=== PATIENT | female | born 1955 | race Native Hawaiian/Other Pacific Islander ===

== ENCOUNTER 2021-04-12 06:56 | Inpatient (IN) | payer MEDICARE, OTHER ==
[~2021-04-12] VITALS: Ht 152.4 cm; Wt 66.0 kg
[2021-04-12] MEDS ORDERED: MAG-OX 400 TAB400 MG PO (07:59)
[2021-04-12] MEDS ORDERED: PROVENTIL HFA6.7 GM INH (08:00)
[2021-04-12] MEDS ORDERED: AMARYL 2MG TABLE2 MG PO (08:01)
[2021-04-12] MEDS ORDERED: ATORVASTATIN CA10 MG PO (08:02)
[2021-04-12] MEDS ORDERED: BYDUREON BCISE 2 MG (08:02)
[2021-04-12] MEDS ORDERED: COLCHICINE0.6 MG PO (08:03)
[2021-04-12] MEDS ORDERED: COREG 25MG TAB25 MG PO (08:04)
[2021-04-12] MEDS ORDERED: DIGOXIN125 MCG PO (08:05)
[2021-04-12] MEDS ORDERED: ENTRESTO 49 MG1 EACH PO (08:05)
[2021-04-12] MEDS ORDERED: FUROSEMIDE20 MG PO (08:06)
[2021-04-12] MEDS ORDERED: MONTELUKAST SOD10 MG PO (08:07)
[2021-04-12] MEDS ORDERED: LORATADINE10 MG PO (08:07)
[2021-04-12] MEDS ORDERED: ALIROCUMAB 75 MG/ML (08:08)
[2021-04-12] MEDS ORDERED: POTASSIUM CHLO10 MEQ PO (08:08)
[2021-04-12] MEDS ORDERED: ZYLOPRIM 300 M300 MG PO (08:09)
[2021-04-12] MEDS ORDERED: ZADITOR5 ML OP (08:11)
[2021-04-12] MEDS ORDERED: PREDNISONE 10 M10 MG PO (08:11)
[2021-04-12 11:01] LABS: HEMOGLOBIN 17.8 gm/dl (12.3-15.3); RED BLOOD COUNT 5.92 M/UL (4.00-5.10); WHITE BLOOD COUNT 11.6 K/UL (4.5-11.0)
[2021-04-12] MEDS ORDERED: KENALOG CREAM 015 GM TOP (14:49)
--- NOTE | 2021-04-13 00:06 | NUR ---
PATIENT BLOOD PRESSURE DECREASED WITH SBP BEING IN 60'S, SHIFTED PATIENT TO LEFT TILT AND BLOOD PRESSURE BECAME NORMAL, LEVOPHED TITRATED TO 16 OVER 20 LEAVING A BP OF 101/52 MAP OF 65
--- NOTE | 2021-04-13 03:58 | NUR ---
urine sample collected and sent to lab
[2021-04-13 04:53] LABS: HEMOGLOBIN 17.2 gm/dl (12.3-15.3); RED BLOOD COUNT 5.71 M/UL (4.00-5.10)
[2021-04-13 05:07] LABS: WHITE BLOOD COUNT 17.1 K/UL (4.5-11.0)
[2021-04-14 04:54] LABS: HEMOGLOBIN 17.1 gm/dl (12.3-15.3); RED BLOOD COUNT 5.9 M/UL (4.00-5.10); WHITE BLOOD COUNT 17.5 K/UL (4.5-11.0)
--- NOTE | 2021-04-14 06:25 | NUR ---
PATIENT TEMP 101.5 NO EFFECT FROM TYLENOL, COOLING BLANKET PLACED ON PATIENT
[2021-04-15 04:26] LABS: HEMOGLOBIN 17.7 gm/dl (12.3-15.3); RED BLOOD COUNT 5.9 M/UL (4.00-5.10)
--- NOTE | 2021-04-16 03:35 | NUR ---
Temp 99.3 removed cooling blanket
[2021-04-16 04:30] LABS: HEMOGLOBIN 17.6 gm/dl (12.3-15.3); RED BLOOD COUNT 5.85 M/UL (4.00-5.10); WHITE BLOOD COUNT 15.2 K/UL (4.5-11.0)
[2021-04-17 05:29] LABS: HEMOGLOBIN 16.2 gm/dl (12.3-15.3); RED BLOOD COUNT 5.47 M/UL (4.00-5.10)
[2021-04-17 05:39] LABS: WHITE BLOOD COUNT 10.9 K/UL (4.5-11.0)
[2021-04-18 05:18] LABS: HEMOGLOBIN 14.8 gm/dl (12.3-15.3); RED BLOOD COUNT 5.11 M/UL (4.00-5.10); WHITE BLOOD COUNT 10.9 K/UL (4.5-11.0)
--- NOTE | 2021-04-19 19:31 | NUR ---
LATE ENTRY 04/19/[id number] PATIENT EXTUBATED FOR COMFORT MEASURES, MEDICATION GIVEN TO PATIENT, RESPIRATORY PRESENT
--- NOTE | 2021-04-20 05:06 | NUR ---
PATIENT ON COMFORT MEASURES DID NOT TURN PATIENT ALLOWED FAMILY TO STAY WITH PATIENT
== END 2021-04-20 16:14 | disposition expired | DRG 870 ==
LOC: OR 06:56 → CCU 11:22
PROVIDERS: Internal Medicine Critical Care Medicine; Internal Medicine Infectious Disease; Internal Medicine Nephrology; Internal Medicine Pulmonary Disease; ADMIT Internal Medicine Gastroenterology
PROC: 5A1955Z Respiratory Ventilation, Greater than 96 Consecutive Hours (ICD-10-PCS; 2021-04-12)
PROC: 0DB78ZX Excision of Stomach, Pylorus, Via Natural or Artificial Opening Endoscopic, Diagnostic (ICD-10-PCS; 2021-04-12)
PROC: 5A12012 Performance of Cardiac Output, Single, Manual (ICD-10-PCS; 2021-04-12)
PROC: 02HV33Z Insertion of Infusion Device into Superior Vena Cava, Percutaneous Approach (ICD-10-PCS; 2021-04-13)
PROC: B24BZZ4 Ultrasonography of Heart with Aorta, Transesophageal (ICD-10-PCS; 2021-04-13)
PROC: 3E033XZ Introduction of Vasopressor into Peripheral Vein, Percutaneous Approach (ICD-10-PCS; 2021-04-13)
PROC: 0DH63UZ Insertion of Feeding Device into Stomach, Percutaneous Approach (ICD-10-PCS; 2021-04-15)
PROC: 4A00X4Z Measurement of Central Nervous Electrical Activity, External Approach (ICD-10-PCS; principal; 2021-04-17)
DX: A41.9 Sepsis, unspecified organism (principal); N17.0 Acute kidney failure with tubular necrosis; J96.01 Acute respiratory failure with hypoxia; J18.9 Pneumonia, unspecified organism; G92.8 Other toxic encephalopathy; R65.21 Severe sepsis with septic shock; C95.91 Leukemia, unspecified, in remission; I50.22 Chronic systolic (congestive) heart failure; E87.2 Acidosis; G93.1 Anoxic brain damage, not elsewhere classified; J44.0 Chronic obstructive pulmonary disease with (acute) lower respiratory infection; N39.0 Urinary tract infection, site not specified; I42.7 Cardiomyopathy due to drug and external agent; I97.121 Postprocedural cardiac arrest following other surgery; Z66 Do not resuscitate; Z51.5 Encounter for palliative care; K29.00 Acute gastritis without bleeding; R13.14 Dysphagia, pharyngoesophageal phase; Z20.822 Contact with and (suspected) exposure to COVID-19; T39.395A Adverse effect of other nonsteroidal anti-inflammatory drugs [NSAID], initial encounter; R14.0 Abdominal distension (gaseous); R57.0 Cardiogenic shock; D75.1 Secondary polycythemia; I11.0 Hypertensive heart disease with heart failure; E87.5 Hyperkalemia; K59.09 Other constipation; E11.65 Type 2 diabetes mellitus with hyperglycemia; M10.9 Gout, unspecified; I48.0 Paroxysmal atrial fibrillation; E78.5 Hyperlipidemia, unspecified; I95.2 Hypotension due to drugs; Z79.899 Other long term (current) drug therapy; Z88.0 Allergy status to penicillin; Z88.8 Allergy status to other drugs, medicaments and biological substances; Z95.810 Presence of automatic (implantable) cardiac defibrillator; Z98.890 Other specified postprocedural states; Z95.1 Presence of aortocoronary bypass graft; Z79.52 Long term (current) use of systemic steroids; Z99.81 Dependence on supplemental oxygen; Z82.49 Family history of ischemic heart disease and other diseases of the circulatory system; R13.10 Dysphagia, unspecified
CPT/HCPCS: ECHO; 31500; 36415; 36600; 70450; 70544; 70551; 71045; 76705; 80048; 80053; 80162; 80202; 81001; 82803; 82962; 83036; 83605; 83615; 83735; 84100; 84132; 84443; 84484; 85025; 85384; 86140; 87040; 87070; 87081; 87086; 87205; 93005; 93306; 94002; 94003; 94760; 95816; C9113; J0133; J0171; J0461; J1644; J1956; J2060; J2270; J2704; J3010; J3370; J7030; J7040; J7060; J7070; J7120; P9047